=== PATIENT | male | born 1980 | race Caucasian/White ===

== ENCOUNTER → 2021-01-31 | Outpatient (CLI) | payer OTHER ==
[2021-01-31 15:29] LABS: HEMOGLOBIN 14.3 gm/dl (14.0-17.5); RED BLOOD COUNT 4.61 M/UL (4.20-5.50)
[2021-02-01 08:14] LABS: HIV SCREEN 4TH GENERATION WRFX Non Reactive (Non Reactive); VITAMIN D, 25-HYDROXY 28.4 ng/mL (30.0-100.0)
[2021-02-01 09:14] LABS: HBSAG SCREEN Negative (Negative); HEP A AB, IGM Negative (Negative); HEP B CORE AB, IGM Negative (Negative)
[2021-02-01 11:42] LABS: HEP C VIRUS AB >11.0 H
[2021-02-01 11:43] LABS: BUN/CREATININE RATIO 23 (0-10)
[2021-02-01 22:09] LABS: T PALLIDUM ANTIBODIES Non Reactive (Non Reactive)
== END ==
LOC: LAB 14:35
PROVIDERS: Preventive Medicine Occupational Medicine
DX: Z13.228 Encounter for screening for other metabolic disorders (principal); Z11.4 Encounter for screening for human immunodeficiency virus [HIV]; Z11.59 Encounter for screening for other viral diseases; E78.00 Pure hypercholesterolemia, unspecified; E55.9 Vitamin D deficiency, unspecified; D51.9 Vitamin B12 deficiency anemia, unspecified; R94.6 Abnormal results of thyroid function studies
CPT/HCPCS: 36415; 80053; 80061; 80074; 80076; 82607; 84439; 84443; 84481; 85025; 86780; 86803; 87389

== ENCOUNTER → 2021-02-08 | Outpatient (CLI) | payer OTHER | LOC: RAD 12:27 | DX: M79.671 Pain in right foot (principal); M79.89 Other specified soft tissue disorders | CPT/HCPCS: 73630 ==

== ENCOUNTER 2021-02-24 19:59 | Emergency (ER) | payer OTHER ==
[2021-02-24 21:26] LABS: HEMOGLOBIN 16.3 gm/dl (14.0-17.5); RED BLOOD COUNT 5.09 M/UL (4.20-5.50)
[2021-02-24 21:50] LABS: BUN/CREATININE RATIO 23 (0-10)
[2021-02-25] MEDS ORDERED: BENZONATATE100 MG PO (02:48)
[2021-02-25] MEDS ORDERED: ZOFRAN ODT 4 MG4 MG PO (02:48)
[2021-02-25] MEDS ORDERED: PROVENTIL HFA6.7 GM INH (02:48)
[2021-02-25] MEDS ORDERED: LODINE CAP 300300 MG PO (02:48)
== END 2021-02-25 03:10 | disposition home or self-care (01) ==
LOC: ER1 19:59
PROVIDERS: Emergency Medicine; Physician Assistant
DX: R51.9 Headache, unspecified (principal); R05.9 Cough, unspecified; F17.200 Nicotine dependence, unspecified, uncomplicated; Z20.822 Contact with and (suspected) exposure to COVID-19
CPT/HCPCS: 0240U; 71045; 71250; 80053; 80307; 81001; 82550; 82553; 83874; 84484; 85025; 85379; 87081; 87086; 87880; 93005; 94664; 94760; 96374; 99284; J1885; J7030